=== PATIENT | female | born 1960 | race Caucasian/White ===

== ENCOUNTER → 2017-04-21 | Outpatient (CLI) | payer BC | END | disposition home or self-care (01) | LOC: C.PAPS 13:37 | PROVIDERS: ATTEND Obstetrics & Gynecology | DX: Z01.419 Encounter for gynecological examination (general) (routine) without abnormal findings (principal) ==

== ENCOUNTER → 2017-07-14 | Outpatient (CLI) | payer BC ==
--- NOTE | 2017-07-15 13:22 | MAMMOGRAPHY REPORT ---
BILATERAL DIGITAL SCREENING MAMMOGRAM 3D/2D WITH CAD: 07/14/2017 CLINICAL HISTORY: Routine screening. Patient has no complaints. TECHNIQUE: Breast tomosynthesis in addition to standard 2D mammography was performed. Current study was also evaluated with a Computer Aided Detection (CAD) system. COMPARISON: Comparison is made to exams dated: 07/08/2016 mammogram, 07/03/2015 mammogram, 06/27/2014 m ammogram, 06/21/2013 mammogram, 06/15/2012 mammogram, and 06/14/2011 mammogram - [facility] nter. BREAST COMPOSITION: The tissue of both breasts is heterogeneously dense, which may obscure small mas ses. FINDINGS: An asymmetry in the lateral left breast appears similar to all available prior mammograms d ating back to at least 05/23/2008, therefore likely benign. No new suspicious mass, architectural di stortion or cluster of microcalcifications is seen. ACR BI-RADS CATEGORY 1: NEGATIVE There is no mammographic evidence of malignancy. A 1 year screening mammogram is recommended. The pa tient will receive written notification of the results. Approximately 10% of breast cancers are not detected with mammography. A negative mammographic report should not delay biopsy if a clinically suggestive mass is present. Lynn Subramanian M.D. ay/:07/14/2017 16:33:50 Bone Glue Maker: Yanni RADER(Karen)(Betty)(BD), [facility] letter sent: Normal 1/2 BI-RADS Code: ACR BI-RADS Category 1: Negative
== END | disposition home or self-care (01) ==
LOC: C.MAMM 14:46
PROVIDERS: ATTEND Family Medicine
DX: Z12.31 Encounter for screening mammogram for malignant neoplasm of breast (principal)